=== PATIENT | female | born 2000 | race African-American/Black ===

== ENCOUNTER 2023-12-11 21:50 | Inpatient (IN) | payer SELFPAY ==
[~2023-12-11] VITALS: Ht 162.6 cm; Wt 45.0 kg
[2023-12-11] MEDS: ONDANSETRON HCL 4 MG/2 ML VIAL IVP ONE (23:25)
[2023-12-11] MEDS: KETOROLAC TROMETHAMINE 30 MG/ML VIAL IVP ONE (23:31)
[2023-12-11 23:38] LABS: BASOPHILS % (AUTO) 0.3 % (0.0-2.0); EOSINOPHILS % (AUTO) 0 % (1.0-6.0); HEMATOCRIT 38.8 % (36-46); HEMOGLOBIN 12.5 g/dL (12.0-16.0); LYMPHOCYTES # (AUTO) 1.4 K/uL (1.0-4.8); LYMPHOCYTES % (AUTO) 8.5 % (22.0-44.0); MEAN CORPUSCULAR HEMOGLOBIN 28.4 pg (26.0-34.0); MEAN CORPUSCULAR HGB CONC 32.3 G/dL (31.0-37.0); MEAN CORPUSCULAR VOLUME 88 fL (80-100); MONOCYTES # (AUTO) 1.1 K/uL (0.1-1.0); MONOCYTES % (AUTO) 6.9 % (2.0-9.0); NEUTROPHILS # (AUTO) 13.9 K/uL (1.8-7.7); NEUTROPHILS % (AUTO) 84.3 % (40.0-70.0); PLATELET COUNT (AUTO) 240 K/uL (150-450); RED BLOOD CELL COUNT(AUTO) 4.42 MIL/uL (4.00-5.20); RED CELL DISTRIBUTION WIDTH 15.3 % (11.5-14.5); WHITE BLOOD COUNT (AUTO) 16.5 K/uL (4.5-11.0)
[2023-12-11 23:42] LABS: APPEARANCE,URINE CLEAR (CLEAR); BILIRUBIN,URINE NEGATIVE (NEGATIVE); COLOR,URINE COLORLESS (YELLOW); GLUCOSE, URINE (UA) TRACE mg/dL (NEGATIVE); KETONES,URINE TRACE mg/dL (NEGATIVE); LEUKOCYTE ESTERASE ,URINE NEGATIVE (NEGATIVE); NITRATE,URINE NEGATIVE (NEGATIVE); OCCULT BLOOD,URINE NEGATIVE (NEGATIVE); PROTEIN,URINE NEGATIVE (NEGATIVE); SPECIFIC GRAVITIY, URINE 1.008 (1.003-1.030); UROBILINOGEN,URINE <=1.0 mg/dL (<=1.0)
[2023-12-11 23:44] LABS: ANION GAP 9 mmol/L (8-16); CALCIUM, TOTAL 8.6 mg/dL (8.8-10.5); CARBON DIOXIDE 27 mmol/L (22-29); CHLORIDE 103 mmol/L (98-107); GLOMERULAR FILTR. RATE CALC > 60 mL/min (>60); GLUCOSE,RANDOM 72 mg/dL (70-110); POTASSIUM 3.7 mmol/L (3.5-5.1); SODIUM SERUM 139 mmol/L (136-145); UREA NITROGEN, BLOOD 9 mg/dL (7-18)
[2023-12-11 23:48] LABS: ALCOHOL, URINE DRUG SCREEN NEGATIVE (NEGATIVE); AMPHET/METH SCREEN,URINE NEGATIVE (NEGATIVE); BARBITURATE SCREEN, URINE NEGATIVE (NEGATIVE); BENZODIAZEPINES SCREEN,URINE POSITIVE (NEGATIVE); CANNABINOID SCREEN,URINE POSITIVE (NEGATIVE); COCAINE SCREEN,URINE NEGATIVE (NEGATIVE); METHADONE SCREEN, URINE NEGATIVE (NEGATIVE); OPIATE SCREEN,URINE NEGATIVE (NEGATIVE); PHENCYCLIDINE SCREEN,URINE NEGATIVE (NEGATIVE)
[2023-12-12 00:17] LABS: ALANINE AMINOTRANSFERASE 28 U/L (12-78); ALBUMIN 3.8 g/dL (3.4-5.0); ALKALINE PHOSPHATASE 73 U/L (46-116); ASPARTATE AMINOTRANSFERASE 68 U/L (15-37); BILIRUBIN,TOTAL 0.4 mg/dL (0.1-1.0); TOTAL PROTEIN, SERUM 7.1 g/dL (6.4-8.2)
[2023-12-12 00:30] LABS: CREATINE KINASE, TOTAL ONLY 2785 U/L (26-192)
[2023-12-12] MEDS: SODIUM CHLORIDE 0.9% 1,000 ML IV ONE (00:45)
[2023-12-12] MEDS: HALOPERIDOL LACTATE 5 MG/ML VIAL IVP ONE (00:49)
[2023-12-12] MEDS: DiphenhydrAMINE HCL 50 MG/ML VIAL IVP ONE (00:49)
[2023-12-12] MEDS: LORazepam 2 MG/ML VIAL IVP ONE (00:49)
[2023-12-12] MEDS ORDERED: ACETAMINOPHEN 325 MG TABLET PO PRN (01:45)
[2023-12-12] MEDS ORDERED: 0.9% SODIUM CHLORIDE 10 ML SYRINGE IVP PRN (01:45)
[2023-12-12] MEDS ORDERED: ONDANSETRON HCL 4 MG/2 ML VIAL IVP PRN ×2 (01:45)
[2023-12-12] MEDS: SODIUM CHLORIDE 0.9% 1,000 ML IV SCH (02:56)
[2023-12-12 06:36] LABS: COVID AG,FIA SOURCE NASAL SWAB
[2023-12-12 07:01] LABS: SARS-COV2 (COVID) ANTIGEN,FIA Negative (Negative)
[2023-12-12] MEDS: HEPARIN SODIUM,PORCINE 5,000 UNITS/ML VIAL SQ SCH (08:27)
[2023-12-12] MEDS: CYCLOBENZAPRINE HCL 10 MG TABLET PO ONE (08:27)
[2023-12-12] MEDS: DOCUSATE SODIUM 100 MG CAPSULE PO SCH (08:27)
[2023-12-12 16:00] VITALS: BP 132/68; PULSE 69; RESP 18; TEMP 98.6
[2023-12-12] MEDS: ACETAMINOPHEN 325 MG TABLET PO PRN (18:07)
[2023-12-12 19:42] VITALS: BP 116/61; PULSE 92; RESP 18; TEMP 98.9
[2023-12-13 02:34] VITALS: BP 124/84; PULSE 87; RESP 18; TEMP 99.1
[2023-12-13 07:24] LABS: BASOPHILS % (AUTO) 0.9 % (0.0-2.0); EOSINOPHILS % (AUTO) 0.7 % (1.0-6.0); HEMATOCRIT 33.4 % (36-46); HEMOGLOBIN 11.5 g/dL (12.0-16.0); LYMPHOCYTES # (AUTO) 3.4 K/uL (1.0-4.8); MEAN CORPUSCULAR HEMOGLOBIN 30.3 pg (26.0-34.0); MEAN CORPUSCULAR HGB CONC 34.4 G/dL (31.0-37.0); MEAN CORPUSCULAR VOLUME 88 fL (80-100); MONOCYTES # (AUTO) 0.8 K/uL (0.1-1.0); MONOCYTES % (AUTO) 9.9 % (2.0-9.0); NEUTROPHILS # (AUTO) 4.1 K/uL (1.8-7.7); NEUTROPHILS % (AUTO) 48.5 % (40.0-70.0); PLATELET COUNT (AUTO) 200 K/uL (150-450); RED BLOOD CELL COUNT(AUTO) 3.79 MIL/uL (4.00-5.20); RED CELL DISTRIBUTION WIDTH 14.6 % (11.5-14.5); WHITE BLOOD COUNT (AUTO) 8.5 K/uL (4.5-11.0)
[2023-12-13 08:15] LABS: ALANINE AMINOTRANSFERASE 25 U/L (12-78); ALBUMIN 2.9 g/dL (3.4-5.0); ALKALINE PHOSPHATASE 51 U/L (46-116); ANION GAP 7 mmol/L (8-16); ASPARTATE AMINOTRANSFERASE 43 U/L (15-37); BILIRUBIN,TOTAL 0.4 mg/dL (0.1-1.0); CALCIUM, TOTAL 8.1 mg/dL (8.8-10.5); CARBON DIOXIDE 25 mmol/L (22-29); CHLORIDE 107 mmol/L (98-107); CREATININE 0.75 mg/dL (0.60-1.30); GLOMERULAR FILTR. RATE CALC > 60 mL/min (>60); GLUCOSE,RANDOM 76 mg/dL (70-110); POTASSIUM 4.1 mmol/L (3.5-5.1); SODIUM SERUM 139 mmol/L (136-145); TOTAL PROTEIN, SERUM 5.7 g/dL (6.4-8.2); UREA NITROGEN, BLOOD 6 mg/dL (7-18)
[2023-12-13 08:16] LABS: CREATINE KINASE, TOTAL ONLY 1229 U/L (26-192)
[2023-12-13 08:52] VITALS: BP 144/84; PULSE 72; RESP 20; TEMP 98.7
[2023-12-13] MEDS: MAGNESIUM OXIDE 400 MG TABLET PO ONE (18:49)
[2023-12-13 20:01] VITALS: BP 131/80; PULSE 66; RESP 18; TEMP 98.6
[2023-12-13] MEDS: MELATONIN 5 MG TABLET PO PRN (20:16)
[2023-12-14 04:50] VITALS: BP 116/73; PULSE 63; RESP 18; TEMP 98.2
[2023-12-14 07:15] LABS: BASOPHILS % (AUTO) 0.6 % (0.0-2.0); EOSINOPHILS % (AUTO) 0.3 % (1.0-6.0); HEMATOCRIT 38.4 % (36-46); HEMOGLOBIN 12.7 g/dL (12.0-16.0); LYMPHOCYTES # (AUTO) 2.4 K/uL (1.0-4.8); LYMPHOCYTES % (AUTO) 26.3 % (22.0-44.0); MEAN CORPUSCULAR HEMOGLOBIN 29.3 pg (26.0-34.0); MEAN CORPUSCULAR HGB CONC 33.2 G/dL (31.0-37.0); MEAN CORPUSCULAR VOLUME 88 fL (80-100); MONOCYTES # (AUTO) 0.8 K/uL (0.1-1.0); MONOCYTES % (AUTO) 9.1 % (2.0-9.0); NEUTROPHILS # (AUTO) 5.8 K/uL (1.8-7.7); NEUTROPHILS % (AUTO) 63.7 % (40.0-70.0); PLATELET COUNT (AUTO) 212 K/uL (150-450); RED BLOOD CELL COUNT(AUTO) 4.35 MIL/uL (4.00-5.20); RED CELL DISTRIBUTION WIDTH 14.4 % (11.5-14.5); WHITE BLOOD COUNT (AUTO) 9.2 K/uL (4.5-11.0)
[2023-12-14 07:31] LABS: ANION GAP 13 mmol/L (8-16); CALCIUM, TOTAL 9.2 mg/dL (8.8-10.5); CARBON DIOXIDE 22 mmol/L (22-29); CHLORIDE 103 mmol/L (98-107); GLOMERULAR FILTR. RATE CALC > 60 mL/min (>60); GLUCOSE,RANDOM 72 mg/dL (70-110); POTASSIUM 3.5 mmol/L (3.5-5.1); SODIUM SERUM 138 mmol/L (136-145); UREA NITROGEN, BLOOD 3 mg/dL (7-18)
[2023-12-14 08:41] VITALS: BP 118/83; PULSE 81; RESP 20; TEMP 98.1
== END 2023-12-14 13:47 | disposition home or self-care (01) | DRG 557 ==
LOC: EMS 21:59 → AHU 12-12 01:46 → 6S 12-12 14:07
PROVIDERS: ADMIT Internal Medicine; ATTEND Internal Medicine
DX: M62.82 Rhabdomyolysis (principal); G92.9 Unspecified toxic encephalopathy; R65.10 Systemic inflammatory response syndrome (SIRS) of non-infectious origin without acute organ dysfunction; E44.0 Moderate protein-calorie malnutrition; Z68.1 Body mass index [BMI] 19.9 or less, adult; Z20.822 Contact with and (suspected) exposure to COVID-19; D64.9 Anemia, unspecified; R41.0 Disorientation, unspecified; D72.829 Elevated white blood cell count, unspecified; F12.10 Cannabis abuse, uncomplicated; Z87.891 Personal history of nicotine dependence; Z72.89 Other problems related to lifestyle
CPT/HCPCS: 80048; 80053; 80307; 81003; 82550; 83735; 84703; 85025; 87491; 87591; 93005; 99291; G0480; J1200; J1630; J1644; J1885; J2060; J7030; Q9967

== ENCOUNTER 2024-06-21 05:07 | Emergency (ER) | payer SELFPAY ==
[~2024-06-21] VITALS: Ht 160 cm; Wt 43.2 kg
[2024-06-21 05:11] VITALS: BP 108/46; PULSE 70; RESP 20; TEMP 98
[2024-06-21] MEDS ORDERED: METH-659 PO (06:55)
== END 2024-06-21 07:05 | disposition home or self-care (01) ==
LOC: EMS 05:08
DX: M62.838 Other muscle spasm (principal); F17.210 Nicotine dependence, cigarettes, uncomplicated; F12.90 Cannabis use, unspecified, uncomplicated
CPT/HCPCS: 99283; Z7502

== ENCOUNTER 2024-07-01 05:36 | Emergency (ER) | payer SELFPAY ==
[~2024-07-01] VITALS: Ht 160 cm; Wt 41.8 kg
[~2024-07-01 05:36] MED LIST: METH-659 PO
[2024-07-01 05:51] VITALS: TEMP 97.5
[2024-07-01] MEDS: HALOPERIDOL LACTATE 5 MG/ML VIAL IVP ONE (06:19)
[2024-07-01] MEDS: ONDANSETRON HCL 4 MG/2 ML VIAL IVP ONE (06:19)
[2024-07-01] MEDS: DiphenhydrAMINE HCL 50 MG/ML VIAL IVP ONE (06:19)
[2024-07-01] MEDS: SODIUM CHLORIDE 0.9% 1,000 ML IV ONE ×2 (06:20→06:21)
[2024-07-01 06:34] LABS: BASOPHILS % (AUTO) 0.9 % (0.0-2.0); EOSINOPHILS % (AUTO) 1.3 % (1.0-6.0); HEMATOCRIT 38.9 % (36-46); HEMOGLOBIN 12.4 g/dL (12.0-16.0); LYMPHOCYTES # (AUTO) 2.6 K/uL (1.0-4.8); LYMPHOCYTES % (AUTO) 18.2 % (22.0-44.0); MEAN CORPUSCULAR HEMOGLOBIN 29.3 pg (26.0-34.0); MEAN CORPUSCULAR HGB CONC 31.9 G/dL (31.0-37.0); MEAN CORPUSCULAR VOLUME 92 fL (80-100); MONOCYTES # (AUTO) 0.7 K/uL (0.1-1.0); MONOCYTES % (AUTO) 4.6 % (2.0-9.0); NEUTROPHILS # (AUTO) 10.9 K/uL (1.8-7.7); PLATELET COUNT (AUTO) 274 K/uL (150-450); RED BLOOD CELL COUNT(AUTO) 4.23 MIL/uL (4.00-5.20); RED CELL DISTRIBUTION WIDTH 14.4 % (11.5-14.5); WHITE BLOOD COUNT (AUTO) 14.5 K/uL (4.5-11.0)
[2024-07-01 06:49] LABS: SODIUM SERUM 139 mmol/L (136-145)
[2024-07-01 06:50] LABS: ANION GAP 13 mmol/L (8-16); CALCIUM, TOTAL 8.2 mg/dL (8.8-10.5); CARBON DIOXIDE 21 mmol/L (22-29); CHLORIDE 105 mmol/L (98-107); CREATININE 1.04 mg/dL (0.60-1.30); GLOMERULAR FILTR. RATE CALC > 60 mL/min (>60); GLUCOSE,RANDOM 183 mg/dL (70-110); UREA NITROGEN, BLOOD 9 mg/dL (7-18)
[2024-07-01 06:55] LABS: POTASSIUM 2.8 mmol/L (3.5-5.1)
[2024-07-01] MEDS: POTASSIUM CHLORIDE 10% 40 MEQ/30 ML LIQUID UDCUP PO ONE (07:06)
[2024-07-01] MEDS: LORazepam 2 MG/ML VIAL IVP ONE (07:14)
[2024-07-01] MEDS: PROCHLORPERAZINE EDISYLATE 5 MG/ML 2 ML VIAL IVP ONE (08:03)
[2024-07-01 08:31] VITALS: BP 116/65; PULSE 98; RESP 20; O2SAT 99
[2024-07-01 08:37] LABS: ANION GAP 10 mmol/L (8-16); CALCIUM, TOTAL 7.7 mg/dL (8.8-10.5); CARBON DIOXIDE 24 mmol/L (22-29); CHLORIDE 107 mmol/L (98-107); CREATININE 0.88 mg/dL (0.60-1.30); GLOMERULAR FILTR. RATE CALC > 60 mL/min (>60); GLUCOSE,RANDOM 106 mg/dL (70-110); POTASSIUM 3.2 mmol/L (3.5-5.1); SODIUM SERUM 141 mmol/L (136-145); UREA NITROGEN, BLOOD 7 mg/dL (7-18)
[2024-07-01] MEDS: POTASSIUM CHLORIDE 20 MEQ ER TABLET PO ONE (10:20)
[2024-07-01] MEDS: KETOROLAC TROMETHAMINE 30 MG/ML VIAL IVP ONE (10:30)
[2024-07-01] MEDS ORDERED: ONDA-104 PO (10:52)
[2024-07-02] MEDS ORDERED: TRAM50TA5 PO (10:01)
[2024-07-02] MEDS ORDERED: GABA-1181 PO (10:01)
== END 2024-07-01 11:12 | disposition home or self-care (01) ==
LOC: EMS 05:37
DX: R11.2 Nausea with vomiting, unspecified (principal); F12.10 Cannabis abuse, uncomplicated; F17.210 Nicotine dependence, cigarettes, uncomplicated
CPT/HCPCS: 99284; 96375; 96374; 96361; 80048; 85025; 36415; J1200; J1630; J1885; J2060; J2405; J0780; J7030

== ENCOUNTER → 2024-07-02 | Emergency (ER) | payer MEDICAID ==
[~2024-07-02] VITALS: Ht 152.4 cm; Wt 41.8 kg
[~2024-07-02] MED LIST changes: +GABA-1181 PO; +ONDA-104 PO; +OxyCODONE HCL/ACETAMINOPHEN 10-325 MG TABLET PO ONE; +TRAM50TA5 PO
[2024-07-02 08:38] VITALS: BP 144/69; PULSE 79; RESP 18; TEMP 97.9; O2SAT 98
[2024-07-02] MEDS: KETOROLAC TROMETHAMINE 30 MG/ML VIAL IVP ONE (09:20)
[2024-07-02] MEDS: SODIUM CHLORIDE 0.9% 1,000 ML IV ONE (09:20)
[2024-07-02] MEDS: LORazepam 2 MG/ML VIAL IVP ONE (09:21)
[2024-07-02] MEDS: POTASSIUM CHLORIDE 20 MEQ ER TABLET PO ONE (09:21)
== END | disposition still patient (30) ==
LOC: EMS 08:33
DX: G25.81 Restless legs syndrome (principal); F17.210 Nicotine dependence, cigarettes, uncomplicated; F12.90 Cannabis use, unspecified, uncomplicated
CPT/HCPCS: 99284; 96374; 96361; 96375; J1885; J2060; J7030; 99285

== ENCOUNTER → 2024-07-12 | Emergency (ER) | payer MEDICAID ==
[~2024-07-12] VITALS: Ht 160 cm; Wt 40.9 kg
[~2024-07-12] MED LIST changes: -OxyCODONE HCL/ACETAMINOPHEN 10-325 MG TABLET PO ONE
[2024-07-12 06:46] VITALS: TEMP 98.8
[2024-07-12 07:43] LABS: BASOPHILS % (AUTO) 0.6 % (0.0-2.0); EOSINOPHILS % (AUTO) 0.3 % (1.0-6.0); HEMATOCRIT 41.1 % (36-46); HEMOGLOBIN 13.1 g/dL (12.0-16.0); LYMPHOCYTES # (AUTO) 2.2 K/uL (1.0-4.8); LYMPHOCYTES % (AUTO) 15.3 % (22.0-44.0); MEAN CORPUSCULAR HEMOGLOBIN 28.8 pg (26.0-34.0); MEAN CORPUSCULAR VOLUME 90 fL (80-100); MONOCYTES # (AUTO) 0.8 K/uL (0.1-1.0); MONOCYTES % (AUTO) 5.6 % (2.0-9.0); NEUTROPHILS # (AUTO) 11.5 K/uL (1.8-7.7); NEUTROPHILS % (AUTO) 78.2 % (40.0-70.0); PLATELET COUNT (AUTO) 377 K/uL (150-450); RED BLOOD CELL COUNT(AUTO) 4.56 MIL/uL (4.00-5.20); WHITE BLOOD COUNT (AUTO) 14.7 K/uL (4.5-11.0)
[2024-07-12 07:54] LABS: ANION GAP 15 mmol/L (8-16); CALCIUM, TOTAL 8.8 mg/dL (8.8-10.5); CARBON DIOXIDE 23 mmol/L (22-29); CHLORIDE 101 mmol/L (98-107); CREATININE 0.78 mg/dL (0.60-1.30); GLOMERULAR FILTR. RATE CALC > 60 mL/min (>60); GLUCOSE,RANDOM 133 mg/dL (70-110); POTASSIUM 3.4 mmol/L (3.5-5.1); SODIUM SERUM 139 mmol/L (136-145); UREA NITROGEN, BLOOD 11 mg/dL (7-18)
[2024-07-12] MEDS: SODIUM CHLORIDE 0.9% 1,000 ML IV ONE ×2 (07:57→10:55)
[2024-07-12 08:05] LABS: ALANINE AMINOTRANSFERASE 33 U/L (12-78); ALBUMIN 4.1 g/dL (3.4-5.0); ALKALINE PHOSPHATASE 58 U/L (46-116); ASPARTATE AMINOTRANSFERASE 22 U/L (15-37); BILIRUBIN,TOTAL 0.3 mg/dL (0.1-1.0); HCG,QUANTITATIVE 1 mIU/mL (0-6); LIPASE 37 U/L (16-77); TOTAL PROTEIN, SERUM 7.9 g/dL (6.4-8.2)
[2024-07-12 08:09] LABS: COVID AG,FIA SOURCE NASAL SWAB
[2024-07-12] MEDS: HALOPERIDOL LACTATE 5 MG/ML VIAL IVP ONE (08:15)
[2024-07-12] MEDS: DiphenhydrAMINE HCL 50 MG/ML VIAL IVP ONE (08:15)
[2024-07-12 08:57] LABS: SARS-COV2 (COVID) ANTIGEN,FIA Negative (Negative)
[2024-07-12 08:58] LABS: INFLUENZA TYPE A NEGATIVE FOR TYPE A (NEGATIVE); INFLUENZA TYPE B NEGATIVE FOR TYPE B (NEGATIVE)
[2024-07-12 09:40] LABS: APPEARANCE,URINE CLEAR (CLEAR); BILIRUBIN,URINE NEGATIVE (NEGATIVE); COLOR,URINE LIGHT YELLOW (YELLOW); GLUCOSE, URINE (UA) NEGATIVE (NEGATIVE); LEUKOCYTE ESTERASE ,URINE NEGATIVE (NEGATIVE); NITRATE,URINE NEGATIVE (NEGATIVE); OCCULT BLOOD,URINE NEGATIVE (NEGATIVE); PH,URINE 5.5 (5.0-8.0); PROTEIN,URINE NEGATIVE (NEGATIVE); SPECIFIC GRAVITIY, URINE 1.016 (1.003-1.030); UROBILINOGEN,URINE <=1.0 mg/dL (<=1.0)
[2024-07-12 09:57] LABS: ALCOHOL, URINE DRUG SCREEN NEGATIVE (NEGATIVE); AMPHET/METH SCREEN,URINE NEGATIVE (NEGATIVE); BARBITURATE SCREEN, URINE NEGATIVE (NEGATIVE); BENZODIAZEPINES SCREEN,URINE NEGATIVE (NEGATIVE); CANNABINOID SCREEN,URINE POSITIVE (NEGATIVE); COCAINE SCREEN,URINE NEGATIVE (NEGATIVE); METHADONE SCREEN, URINE NEGATIVE (NEGATIVE); OPIATE SCREEN,URINE POSITIVE (NEGATIVE); PHENCYCLIDINE SCREEN,URINE NEGATIVE (NEGATIVE)
[2024-07-12 10:04] LABS: PH,URINE DRUG SCREEN 5.5 (5.0-8.0)
[2024-07-12 11:38] VITALS: BP 110/60; PULSE 80; RESP 20; O2SAT 98
== END | disposition still patient (30) ==
LOC: EMS 06:40
DX: F41.9 Anxiety disorder, unspecified (principal); F12.10 Cannabis abuse, uncomplicated; R11.2 Nausea with vomiting, unspecified; F17.210 Nicotine dependence, cigarettes, uncomplicated; Z20.822 Contact with and (suspected) exposure to COVID-19
CPT/HCPCS: 76700; 80053; 80307; 81003; 83690; 84702; 85025; 87804; 96361; 96374; 96375; 99285; J1200; J1630; J7030; 36415-L1; 36415-TC